=== PATIENT | male | born 1955 | race Caucasian/White ===

== ENCOUNTER 2016-06-24 11:25 | Day surgery (SDC) | payer OTHER ==
[~2016-06-24 11:25] MED LIST: ACETAMINOPHEN 325 MG TABLET PO PRN; ACETYLCHOLINE CHLORIDE 20 DROP KIT IO PRN; BUPIVACAINE HCL/PF 30 ML VIAL IJ PRN; CYCLOPENTOLATE HCL 20 DROP BTL RIGHTEYE PRN; DEXTROSE 5%-0.5 NORMAL SALINE 1,000 ML IV PRN; EPINEPHrine 1 MG/ML AMPUL IO PRN; HYALURONATE SODIUM 0.4 ML DISP.SYRIN IO PRN; HYALURONATE SODIUM 0.85 ML DISP.SYRIN IO PRN; LIDOCAINE HCL/PF 200 MG/5 ML AMPUL TP PRN; LIDOCAINE HCL/PF 5 ML VIAL IO PRN; NORMAL SALINE 3 ML BOX IV PRN; TETRACAINE HCL 150 DROP BTL OP PRN
--- OUTSIDE RECORDS SUMMARY | 2016-06-24 11:30 | XMS REPORT | Continuity of Care Document ---
:1955 Author Organization [facility] ([facility]) Address [address] [place] [address] Phone [phone] Care Team Providers Name Role Phone Provider, No-Primary Care Primary Care Provider Unavailable Source Comments This disclosure is being made pursuant to the Care Everywhere program, applicable federal and state laws, and may not contain all informaitonavailable regarding this patient.[facility] ([facility]) Active Allergies and Adverse Reactions Not on File Current Medications Not on file Active Problems Not on file Most Recent Encounters Date Type Specialty Providers Description 03/29/2016 Lab Requisition Pathology [facility], [facility] Dx: Pyogenic granuloma Social History Tobacco Use Types Packs/Day Years Used Date Never Assessed Plan of Care Health Maintenance Due Date Last Done Comments HCV Screening 1955 Hepatitis B Vaccine (1 of 3 - Primary Series) 1955 Tdap Vaccine 10/08/1967 Lipid Disorder Screening 1974 MMR Vaccine 1974 Td Vaccine 1974 Colonoscopy 2006 Prostate Cancer Screening 2006 Influenza Vaccine: Seasonal (#1) 11/06/2015 Results from Last 3 Months DERMATOPATHOLOGY EXAM (03/27/2016 12:21 PM) Component Value Range Case Report Surgical Pathology Case: [id number] Authorizing Provider:[facility], [facility] Collected: 03/27/2016 12:21 PM Pathologist: Debo Davenport MD Received:03/29/2016 12:21 PM Specimen:Skin, other, specify, L Medial 3rd toe Diagnosis Skin, left medial third toe, shave biopsy: Pyogenic granuloma. I have personally reviewed this case and edited the report as necessary. Clinical Information Tissue source/site: [id number] medial 3rd toe. Pertinent clinical history and findings: 1.2 cm friable hemorrhagic papule. Clinical differential diagnosis: Pyogenic granuloma. Gross Description A.Received in formalin, in a container labeled Jadiel Woods, date of , and "L Medial 3rd toe", is a 1.2 x 0.8 x 0.3 cm plunkett shave biopsy.The specimen is inked, quadrisected and submittedentirely in A1. LRL/tkr Microscopic Description Sections show a lobular proliferation of capillaries lined by cytologically bland endothelial cells surrounded by an epithelial collarette.Bands of loose connective tissue separate the lobules.The deep margin is involved. Performed by:Christopher Arias MD, R3/aarti Specimen Skin - Skin, other, specify
--- OUTSIDE RECORDS SUMMARY | 2016-06-24 11:30 | XMS REPORT | Continuity of Care Document ---
:1955 Author Organization [employer] [place] [address] Care Team Providers Name Role Phone Unavailable Primary Care Provider Unavailable Source Comments This disclosure is being made pursuant to the [employer] program and maynot contain all information available regarding this patient.[facility] Active Allergies and Adverse Reactions Not on File Current Medications Be aware that medications may not be up to date as of this document. Alwaysverify current medications with the patient. Not on file Active Problems Not on file Social History Tobacco Use Types Packs/Day Years Used Date Never Assessed Plan of Care Health Maintenance Due Date Last Done Comments Retired-Pertussis Vaccine Adult 10/08/1975 Retired-Tetanus Vaccine Adult 10/08/1975 Well Adult Visit 2006 Retired-INFLUENZA VACCINE 12/06/2014 Colonoscopy 12/30/2021 12/31/2011 Results from Last 3 Months Not on file
[2016-06-24] MEDS: TROPICAMIDE 150 DROP BTL RIGHTEYE PRN ×3 (12:05→12:25)
[2016-06-24] MEDS: PHENYLEPHRINE HCL 50 DROP BTL RIGHTEYE PRN ×3 (12:05→12:25)
[2016-06-24 14:04] VITALS: BP 125/76
== END 2016-06-24 11:26 | disposition home or self-care (01) ==
LOC: AMB 11:25
PROVIDERS: ATTEND Ophthalmology
PROC: 08RJ3JZ Replacement of Right Lens with Synthetic Substitute, Percutaneous Approach (ICD-10-PCS; principal; 2016-06-24 12:30)
DX: H26.9 Unspecified cataract (principal); I10 Essential (primary) hypertension; Z68.31 Body mass index [BMI] 31.0-31.9, adult

== ENCOUNTER 2016-07-08 06:57 | Day surgery (SDC) | payer OTHER ==
[~2016-07-08 06:57] MED LIST changes: +CYCLOPENTOLATE HCL 20 DROP BTL LEFTEYE PRN; -CYCLOPENTOLATE HCL 20 DROP BTL RIGHTEYE PRN
--- OUTSIDE RECORDS SUMMARY | 2016-07-08 07:01 | XMS REPORT | Continuity of Care Document ---
:1955 Author Organization [employer] [place] [address] Care Team Providers Name Role Phone Unavailable Primary Care Provider Unavailable Source Comments This disclosure is being made pursuant to the [employer] program and maynot contain all information available regarding this patient.[employer] Active Allergies and Adverse Reactions Not on [...]
--- OUTSIDE RECORDS SUMMARY | 2016-07-08 07:01 | XMS REPORT | Continuity of Care Document ---
:1955 Author Organization [facility] ([facility]) Address [address] [place] [address] Phone [phone] Care Team Providers Name Role Phone Provider, No-Primary Care Primary Care Provider Unavailable Source Comments This disclosure is being made pursuant to the Care Everywhere program, applicable federal and state laws, and may not contain all informaitonavailable regarding this patient.[facility] ([facility]) Active Allergies and Adverse Reactions Not on [...] (#1) 11/06/2015 Results from Last 3 Months Not on file
[2016-07-08] MEDS: PHENYLEPHRINE HCL 50 DROP BTL LEFTEYE PRN ×3 (07:15→07:35)
[2016-07-08] MEDS: TROPICAMIDE 150 DROP BTL LEFTEYE PRN ×3 (07:15→07:35)
[2016-07-08] MEDS ORDERED: DEXTROSE 5%-0.5 NORMAL SALINE 1,000 ML IV ONE (07:20)
[2016-07-08] MEDS ORDERED: RINGERS SOLUTION,LACTATED 1,000 ML IV ONE (07:20)
[2016-07-08 15:36] VITALS: BP 121/72
== END 2016-07-08 06:58 | disposition home or self-care (01) ==
LOC: AMB 06:57
PROVIDERS: ATTEND Ophthalmology
PROC: 08RK3JZ Replacement of Left Lens with Synthetic Substitute, Percutaneous Approach (ICD-10-PCS; principal; 2016-07-08 10:15)
DX: H26.9 Unspecified cataract (principal); I10 Essential (primary) hypertension; Z68.33 Body mass index [BMI] 33.0-33.9, adult